=== PATIENT | female | born 1945 | race Caucasian/White ===

== ENCOUNTER → 2018-04-05 | Outpatient (CLI) | payer MEDICARE, OTHER ==
[~2018-04-05] MED LIST: ATOR20TA50 PO; BIOT5TAB3 PO; CITA-77 PO; ESTR1TAB5 PO; HYDR-531 PO; KRIL1CAP9 PO; LORA-154 OR; METF-370 PO; ROPI0.5T18 PO; SITA50TA PO; TEMA30CA PO; VALS1TAB57 PO
[2018-04-05 11:44] LABS: Basophils # (auto) 0 uL; Basophils % (auto) 0.2 % (0.0-2.0); Eosinophils # (auto) 0.1 uL; Eosinophils % (auto) 1.8 % (0.0-7.0); Hematocrit 38.5 % (36.0-46.0); Hemoglobin 12.4 g/dL (12.2-16.2); Lymphocytes # (auto) 1.7 uL; Lymphocytes % (auto) 23.6 % (10.0-50.0); Mean Corpuscular Hemoglobin 27.5 pg (28.0-32.0); Mean Corpuscular Hgb Conc. 32.2 g/dL (32.0-36.0); Mean Corpuscular Volume 85.3 fL (80.0-100.0); Monocytes # (auto) 0.5 uL; Monocytes % (auto) 7.5 % (0.0-12.0); Neutrophils # (auto) 4.8 uL; Neutrophils % (auto) 66.9 % (37.0-80.0); Platelet Count (auto) 224 10^3/uL (140-450); Red Blood Cells 4.52 10^6/uL (4.0-5.20); Red Cell Distribution Width 13.9 % (11.8-14.3); White Blood Cell 7.2 10^3/uL (4.4-10.8)
[2018-04-05 12:18] LABS: Potassium 4.8 mmol/L (3.5-5.1)
[2018-04-05 12:19] LABS: Albumin 3.8 g/dL (3.4-5.0); BUN/Creatinine Ratio 21.2; Bilirubin, Total 0.7 mg/dL (0.2-1.0); Calcium 9.2 mg/dL (8.5-10.1); Total Protein 7.8 g/dL (6.4-8.2)
== END | disposition home or self-care (01) ==
LOC: LAB 11:20
PROVIDERS: ATTEND Physician Assistant
DX: E11.69 Type 2 diabetes mellitus with other specified complication (principal); I10 Essential (primary) hypertension; E78.2 Mixed hyperlipidemia
CPT/HCPCS: 36415; 80053; 80061; 83036; 85025

== ENCOUNTER → 2018-10-02 | Outpatient (CLI) | payer MEDICARE, OTHER ==
[2018-10-02 10:56] LABS: Basophils # (auto) 0 uL; Eosinophils # (auto) 0.1 uL; Lymphocytes # (auto) 1.7 uL; Mean Corpuscular Hemoglobin 26.4 pg (28.0-32.0); Monocytes # (auto) 0.6 uL; Neutrophils # (auto) 4.1 uL; White Blood Cell 6.5 10^3/uL (4.4-10.8)
[2018-10-02 10:57] LABS: Basophils % (auto) 0.3 % (0.0-2.0); Eosinophils % (auto) 1.7 % (0.0-7.0); Hematocrit 37.5 % (36.0-46.0); Lymphocytes % (auto) 26.5 % (10.0-50.0); Mean Corpuscular Volume 82.5 fL (80.0-100.0); Monocytes % (auto) 9.3 % (0.0-12.0); Neutrophils % (auto) 62.2 % (37.0-80.0); Platelet Count (auto) 220 10^3/uL (140-450); Red Blood Cells 4.55 10^6/uL (4.0-5.20); Red Cell Distribution Width 15.1 % (11.8-14.3)
[2018-10-02 11:08] LABS: INR 0.93 (0.9-1.15); Partial Thromboplastin Time 24.7 sec (23.78-33.04)
[2018-10-02 11:10] LABS: BUN/Creatinine Ratio 16.4; Potassium 4.2 mmol/L (3.5-5.1)
== END | disposition home or self-care (01) ==
LOC: LAB 10:39
PROVIDERS: ATTEND Urology
DX: N39.0 Urinary tract infection, site not specified (principal); M79.89 Other specified soft tissue disorders; D53.8 Other specified nutritional anemias
CPT/HCPCS: 36415; 80048; 85025; 85610; 85730

== ENCOUNTER → 2019-02-15 | Outpatient (CLI) | payer MEDICARE, OTHER ==
[2019-02-15 12:37] LABS: BUN/Creatinine Ratio 16.7
[2019-02-15 12:42] LABS: Basophils # (auto) 0 uL; Eosinophils # (auto) 0.1 uL; Hemoglobin 11.3 g/dL (12.2-16.2); Monocytes # (auto) 0.5 uL; Neutrophils # (auto) 4.4 uL; White Blood Cell 6.6 10^3/uL (4.4-10.8)
[2019-02-15 12:45] LABS: Basophils % (auto) 0.6 % (0.0-2.0); Eosinophils % (auto) 2.1 % (0.0-7.0); Hematocrit 35.7 % (36.0-46.0); Lymphocytes # (auto) 1.5 uL; Lymphocytes % (auto) 23.2 % (10.0-50.0); Mean Corpuscular Hemoglobin 24.5 pg (28.0-32.0); Mean Corpuscular Hgb Conc. 31.7 g/dL (32.0-36.0); Mean Corpuscular Volume 77.1 fL (80.0-100.0); Monocytes % (auto) 8.1 % (0.0-12.0); Nucleated Red Blood Cells % 0.1 %; Platelet Count (auto) 237 10^3/uL (140-450); Red Blood Cells 4.62 10^6/uL (4.0-5.20); Red Cell Distribution Width 15.6 % (11.8-14.3)
[2019-02-15 12:53] LABS: Urine Bacteria FEW /hpf (None Seen); Urine Blood Negative /uL (Negative); Urine Mucus FEW (None Seen); Urine Specific Gravity 1.028 (1.001-1.035); Urine WBC 8 /hpf (0 - 5)
[2019-02-15 12:56] LABS: INR 0.95 (0.9-1.15)
== END | disposition home or self-care (01) ==
LOC: LAB 11:07
PROVIDERS: ATTEND Urology
DX: N39.0 Urinary tract infection, site not specified (principal); M79.89 Other specified soft tissue disorders; D53.8 Other specified nutritional anemias
CPT/HCPCS: 36415; 80048; 81001; 85025; 85610; 85652; 85730; 87086; 87088; 87186

== ENCOUNTER 2019-03-29 19:12 | Emergency (ER) | payer MEDICARE, OTHER ==
[~2019-03-29] VITALS: Ht 172.7 cm; Wt 97.5 kg
[2019-03-29 19:54] LABS: Basophils # (auto) 0 uL; Basophils % (auto) 0.2 % (0.0-2.0); Eosinophils # (auto) 0.1 uL; Eosinophils % (auto) 0.8 % (0.0-7.0); Hematocrit 33.2 % (36.0-46.0); Hemoglobin 10.5 g/dL (12.2-16.2); Lymphocytes # (auto) 1.2 uL; Lymphocytes % (auto) 12.2 % (10.0-50.0); Mean Corpuscular Hgb Conc. 31.6 g/dL (32.0-36.0); Mean Corpuscular Volume 75.8 fL (80.0-100.0); Monocytes # (auto) 0.8 uL; Neutrophils # (auto) 7.8 uL; Neutrophils % (auto) 78.8 % (37.0-80.0); Nucleated Red Blood Cells % 0.1 %; Platelet Count (auto) 259 10^3/uL (140-450); Red Blood Cells 4.37 10^6/uL (4.0-5.20); Red Cell Distribution Width 16.4 % (11.8-14.3); White Blood Cell 9.8 10^3/uL (4.4-10.8)
[2019-03-29 20:03] VITALS: BP 207/100
[2019-03-29 20:08] LABS: Alanine Aminotransferase 18 U/L (13-56); Albumin 4.3 g/dL (3.4-5.0); Anion Gap 9 (5-15); Aspartate Aminotransferase 14 U/L (15-37); BUN/Creatinine Ratio 13.4; Blood Urea Nitrogen 18 mg/dL (7-18); Calcium 8.9 mg/dL (8.5-10.1); Carbon Dioxide 23 mmol/L (21-32); Chloride 105 mmol/L (98-107); GFR African American 50 mL/min; GFR Non-African American 41 mL/min; Glucose 177 mg/dL (74-106); Magnesium 2.2 mg/dL (1.6-2.6); Potassium 4.1 mmol/L (3.5-5.1); Sodium 137 mmol/L (136-145)
[2019-03-29 20:13] LABS: Alkaline Phosphatase 99 U/L (45-117); Bilirubin, Total 1.2 mg/dL (0.2-1.0); Total Protein 8.2 g/dL (6.4-8.2)
[2019-03-29] MEDS ORDERED: cloNIDine HCL 0.1 MG TAB ONE (20:23)
[2019-03-29 22:00] LABS: INR 1.01 (0.9-1.15); Partial Thromboplastin Time 26.3 sec (23.64-32.05)
== END 2019-03-29 23:30 | disposition left against medical advice (07) ==
LOC: ER 19:12
DX: R07.89 Other chest pain (principal); Z53.21 Procedure and treatment not carried out due to patient leaving prior to being seen by health care provider
CPT/HCPCS: 36415; 71046; 80053; 83735; 83880; 84484; 85025; 85379; 85610; 85730; 93005

== ENCOUNTER 2019-03-30 13:06 | Emergency (ER) | payer MEDICARE, OTHER ==
[~2019-03-30] VITALS: Ht 172.7 cm; Wt 54.4 kg
[2019-03-30 13:49] LABS: Basophils # (auto) 0 uL; Basophils % (auto) 0.2 % (0.0-2.0); Eosinophils # (auto) 0 uL; Eosinophils % (auto) 0.1 % (0.0-7.0); Lymphocytes # (auto) 0.5 uL; Monocytes # (auto) 0.9 uL
[2019-03-30 13:50] LABS: Hematocrit 31.4 % (36.0-46.0); Hemoglobin 9.7 g/dL (12.2-16.2); Lymphocytes % (auto) 4.5 % (10.0-50.0); Mean Corpuscular Hemoglobin 23.6 pg (28.0-32.0); Mean Corpuscular Hgb Conc. 30.9 g/dL (32.0-36.0); Mean Corpuscular Volume 76.4 fL (80.0-100.0); Monocytes % (auto) 7.6 % (0.0-12.0); Neutrophils # (auto) 9.9 uL; Neutrophils % (auto) 87.6 % (37.0-80.0); Platelet Count (auto) 237 10^3/uL (140-450); Red Blood Cells 4.11 10^6/uL (4.0-5.20); Red Cell Distribution Width 16.6 % (11.8-14.3); White Blood Cell 11.3 10^3/uL (4.4-10.8)
[2019-03-30 13:59] LABS: Alanine Aminotransferase 16 U/L (13-56); Albumin 3.7 g/dL (3.4-5.0); Anion Gap 8 (5-15); Aspartate Aminotransferase 15 U/L (15-37); BUN/Creatinine Ratio 14.1; Blood Urea Nitrogen 26 mg/dL (7-18); Calcium 8.5 mg/dL (8.5-10.1); Carbon Dioxide 24 mmol/L (21-32); Chloride 106 mmol/L (98-107); GFR African American 34 mL/min; GFR Non-African American 28 mL/min; Glucose 165 mg/dL (74-106); Potassium 4.1 mmol/L (3.5-5.1); Sodium 138 mmol/L (136-145)
[2019-03-30 14:03] LABS: Alkaline Phosphatase 92 U/L (45-117); Bilirubin, Total 1.6 mg/dL (0.2-1.0); Total Protein 7.5 g/dL (6.4-8.2)
[2019-03-30 14:38] LABS: Urine Bacteria FEW /hpf (None Seen); Urine Blood 1+ /uL (Negative); Urine Specific Gravity 1.012 (1.001-1.035); Urine WBC 2 /hpf (0 - 5)
[2019-03-30 15:08] VITALS: BP 116/56
== END 2019-03-30 16:19 | disposition home or self-care (01) ==
LOC: EDBD 13:06 → ER 13:10
DX: N39.0 Urinary tract infection, site not specified (principal); E11.9 Type 2 diabetes mellitus without complications; I10 Essential (primary) hypertension; E78.00 Pure hypercholesterolemia, unspecified; Z90.49 Acquired absence of other specified parts of digestive tract; Z88.8 Allergy status to other drugs, medicaments and biological substances; Z79.899 Other long term (current) drug therapy
CPT/HCPCS: 36415; 51701; 80053; 81001; 84484; 85025; 93005

== ENCOUNTER → 2020-02-21 | Outpatient (CLI) | payer MEDICARE, OTHER ==
[2020-02-21 11:21] LABS: Basophils # (auto) 0 10 ^3/uL (0-0.2); Basophils % (auto) 0.5 % (0.0-2.0); Eosinophils # (auto) 0.1 10 ^3/uL (0-0.8); Lymphocytes # (auto) 1.4 10 ^3/uL (0.4-5.4); Monocytes # (auto) 0.6 10 ^3/uL (0-1.3); Red Blood Cells 4.33 10^6/uL (4.0-5.20)
[2020-02-21 11:24] LABS: Eosinophils % (auto) 1.9 % (0.0-7.0); Hematocrit 31.4 % (36.0-46.0); Hemoglobin 9.7 g/dL (12.2-16.2); Mean Corpuscular Hemoglobin 22.3 pg (28.0-32.0); Mean Corpuscular Hgb Conc. 30.8 g/dL (32.0-36.0); Mean Corpuscular Volume 72.4 fL (80.0-100.0); Monocytes % (auto) 11.4 % (0.0-12.0); Neutrophils # (auto) 3.2 10 ^3/uL (1.6-8.6); Neutrophils % (auto) 60.2 % (37.0-80.0); Platelet Count (auto) 239 10^3/uL (140-450); Red Cell Distribution Width 17.2 % (11.8-14.3); White Blood Cell 5.3 10^3/uL (4.4-10.8)
[2020-02-21 11:38] LABS: Albumin 3.8 g/dL (3.4-5.0); Calcium 9.1 mg/dL (8.5-10.1); Potassium 4.2 mmol/L (3.5-5.1)
[2020-02-21 11:43] LABS: BUN/Creatinine Ratio 19.5; Bilirubin, Total 0.7 mg/dL (0.2-1.0); Total Protein 7.6 g/dL (6.4-8.2)
[2020-02-21 11:48] LABS: Urine Bacteria FEW /hpf (None Seen); Urine Blood Negative /uL (Negative); Urine Mucus FEW (None Seen); Urine Specific Gravity 1.028 (1.001-1.035); Urine WBC 4 /hpf (0 - 5)
== END | disposition home or self-care (01) ==
LOC: LAB 11:05
PROVIDERS: ATTEND Physician Assistant
DX: E11.69 Type 2 diabetes mellitus with other specified complication (principal); I10 Essential (primary) hypertension; G89.4 Chronic pain syndrome; M15.9 Polyosteoarthritis, unspecified; R07.9 Chest pain, unspecified; R01.1 Cardiac murmur, unspecified
CPT/HCPCS: 36415; 80053; 80061; 81001; 83036; 85025

== ENCOUNTER → 2020-03-16 | Outpatient (CLI) | payer MEDICARE, OTHER ==
[2020-03-16 13:57] LABS: Basophils # (auto) 0 10 ^3/uL (0-0.2); Eosinophils # (auto) 0.1 10 ^3/uL (0-0.8); Monocytes # (auto) 0.6 10 ^3/uL (0-1.3)
[2020-03-16 13:59] LABS: Basophils % (auto) 0.5 % (0.0-2.0); Eosinophils % (auto) 1.9 % (0.0-7.0); Hemoglobin 9.8 g/dL (12.2-16.2); Lymphocytes # (auto) 1.6 10 ^3/uL (0.4-5.4); Lymphocytes % (auto) 26.2 % (10.0-50.0); Mean Corpuscular Hemoglobin 22.4 pg (28.0-32.0); Mean Corpuscular Hgb Conc. 31.4 g/dL (32.0-36.0); Mean Corpuscular Volume 71.3 fL (80.0-100.0); Monocytes % (auto) 9.9 % (0.0-12.0); Neutrophils # (auto) 3.8 10 ^3/uL (1.6-8.6); Neutrophils % (auto) 61.5 % (37.0-80.0); Nucleated Red Blood Cells % 0.1 %; Platelet Count (auto) 278 10^3/uL (140-450); Red Blood Cells 4.35 10^6/uL (4.0-5.20); Red Cell Distribution Width 17.2 % (11.8-14.3); White Blood Cell 6.2 10^3/uL (4.4-10.8)
[2020-03-16 14:14] LABS: Urine Bacteria NONE SEEN /hpf (None Seen); Urine Blood Negative /uL (Negative); Urine Specific Gravity 1.026 (1.001-1.035); Urine WBC None Seen /hpf (0 - 5)
[2020-03-16 14:15] LABS: INR 1.01 (0.9-1.15); Partial Thromboplastin Time 24.4 sec (23.0-31.2)
[2020-03-16 14:59] LABS: BUN/Creatinine Ratio 18.6; Calcium 9.2 mg/dL (8.5-10.1); Potassium 4.3 mmol/L (3.5-5.1)
== END | disposition home or self-care (01) ==
LOC: LAB 13:41
PROVIDERS: ATTEND Obstetrics & Gynecology
DX: M79.89 Other specified soft tissue disorders (principal); N39.0 Urinary tract infection, site not specified; D50.8 Other iron deficiency anemias
CPT/HCPCS: 36415; 80048; 81001; 85025; 85610; 85730; 87086

== ENCOUNTER → 2020-04-30 | Outpatient (CLI) | payer MEDICARE, OTHER ==
[~2020-04-30] MED LIST changes: +ALBUTEROL SULF 2.5 MG/0.5ML(0.5%) NEB SOLN ONE
== END | disposition home or self-care (01) ==
LOC: RT 10:56
PROVIDERS: ATTEND Internal Medicine Pulmonary Disease
DX: R06.00 Dyspnea, unspecified (principal); R06.02 Shortness of breath
CPT/HCPCS: 94060; 94618; 94727; 94729

== ENCOUNTER 2020-06-12 23:51 | Inpatient (IN) | payer MEDICARE, OTHER ==
[~2020-06-12] VITALS: Ht 177.8 cm; Wt 96.4 kg
[~2020-06-12 23:51] MED LIST changes: -ALBUTEROL SULF 2.5 MG/0.5ML(0.5%) NEB SOLN ONE
[2020-06-13] MEDS ORDERED: dilTIAZem 25 MG/5 ML VIAL IV ONE
[2020-06-13] MEDS ORDERED: SODIUM CHLORIDE 0.9% 1,000 ML IVB ONE
[2020-06-13] MEDS ORDERED: dilTIAZem HCL 60 MG TAB PO ONE
[2020-06-13] MEDS ORDERED: ONDANSETRON HCL 4 MG/2 ML VIAL IV ONE
[2020-06-13 00:47] LABS: Basophils # (auto) 0 10 ^3/uL (0-0.2); Basophils % (auto) 0.4 % (0.0-2.0); Eosinophils # (auto) 0 10 ^3/uL (0-0.8); Hematocrit 36.5 % (36.0-46.0); Hemoglobin 11.3 g/dL (12.2-16.2); Lymphocytes # (auto) 0.7 10 ^3/uL (0.4-5.4); Lymphocytes % (auto) 19.3 % (10.0-50.0); Mean Corpuscular Hgb Conc. 30.8 g/dL (32.0-36.0); Mean Corpuscular Volume 77.9 fL (80.0-100.0); Monocytes # (auto) 0.4 10 ^3/uL (0-1.3); Monocytes % (auto) 12.6 % (0.0-12.0); Neutrophils # (auto) 2.4 10 ^3/uL (1.6-8.6); Neutrophils % (auto) 67.7 % (37.0-80.0); Nucleated Red Blood Cells % 0.3 %; Platelet Count (auto) 175 10^3/uL (140-450); Red Blood Cells 4.69 10^6/uL (4.0-5.20); Red Cell Distribution Width 19.3 % (11.8-14.3); White Blood Cell 3.5 10^3/uL (4.4-10.8)
[2020-06-13 01:00] LABS: Albumin 3.4 g/dL (3.4-5.0); Calcium 7.9 mg/dL (8.5-10.1); Potassium 4.2 mmol/L (3.5-5.1)
[2020-06-13 01:07] LABS: BUN/Creatinine Ratio 14.2; Bilirubin, Total 0.4 mg/dL (0.2-1.0); Total Protein 7.4 g/dL (6.4-8.2)
[2020-06-13 01:41] LABS: INR 1.11 (0.9-1.15); Partial Thromboplastin Time 28.6 sec (23.0-31.2)
[2020-06-13] MEDS ORDERED: ENOXAPARIN SOD 100 MG/1 ML SYRINGE SC ONE (04:00)
[2020-06-13] MEDS ORDERED: HYDROcodone-ACET 5/325MG TAB PO PRN (07:00)
[2020-06-13] MEDS ORDERED: DEXTROSE (50%) 50ML SYRG IV PRN (07:00)
[2020-06-13] MEDS ORDERED: MORPHINE SULFATE 4 MG/ML SYR/VIAL IV PRN (07:00)
[2020-06-13] MEDS ORDERED: MORPHINE SULF INJ 2 MG/ML SYRINGE 1ML IV PRN (07:00)
[2020-06-13] MEDS ORDERED: ONDANSETRON HCL 4 MG/2 ML VIAL IV PRN (07:00)
[2020-06-13] MEDS ORDERED: ACETAMINOPHEN 325 MG TAB PO PRN (07:00)
[2020-06-13] MEDS ORDERED: DOCUSATE SOD 100 MG CAP PO PRN (07:00)
[2020-06-13] MEDS ORDERED: NITROGLYCERIN 0.4 MG SL TAB SL PRN (07:00)
[2020-06-13 08:37] LABS: Albumin 3.1 g/dL (3.4-5.0); BUN/Creatinine Ratio 19.4; Calcium 7.8 mg/dL (8.5-10.1); Potassium 4.3 mmol/L (3.5-5.1)
[2020-06-13 08:39] LABS: Bilirubin, Total 0.4 mg/dL (0.2-1.0); Total Protein 6.6 g/dL (6.4-8.2)
[2020-06-13 08:40] LABS: Basophils # (auto) 0 10 ^3/uL (0-0.2); Basophils % (auto) 0.3 % (0.0-2.0); Eosinophils # (auto) 0 10 ^3/uL (0-0.8); Eosinophils % (auto) 0.1 % (0.0-7.0); Monocytes # (auto) 0.5 10 ^3/uL (0-1.3); Monocytes % (auto) 14.1 % (0.0-12.0); Neutrophils # (auto) 1.8 10 ^3/uL (1.6-8.6); White Blood Cell 3.3 10^3/uL (4.4-10.8)
[2020-06-13 08:43] LABS: Hemoglobin 10.7 g/dL (12.2-16.2); Lymphocytes # (auto) 1.1 10 ^3/uL (0.4-5.4); Lymphocytes % (auto) 32.7 % (10.0-50.0); Mean Corpuscular Hemoglobin 24.2 pg (28.0-32.0); Mean Corpuscular Hgb Conc. 31.4 g/dL (32.0-36.0); Mean Corpuscular Volume 77.2 fL (80.0-100.0); Neutrophils % (auto) 52.8 % (37.0-80.0); Nucleated Red Blood Cells % 0.5 %; Platelet Count (auto) 174 10^3/uL (140-450); Red Cell Distribution Width 19.2 % (11.8-14.3)
[2020-06-13 08:46] LABS: Cholesterol 108 mg/dL (< 200); HDL Cholesterol 38 mg/dL (40-59); LDL Cholesterol 61 mg/dL (< 100); Triglycerides 85 mg/dL (< 150)
[2020-06-13] MEDS: InsuLIN REG 1unit/0.01ml Soln (100units/ml) SC SCH ×4 (09:20→22:00)
[2020-06-13] MEDS: ACCU-CHEK COMFORT CURVE STRIP VI SCH ×4 (09:20→23:35)
[2020-06-13] MEDS ORDERED: AZITHROMYCIN 500MG/ 250ML 250 ML IV SCH (10:00)
[2020-06-13] MEDS ORDERED: METOPROLOL TARTRATE 25 MG TAB PO SCH (10:00)
[2020-06-13] MEDS ORDERED: ZINC SULFATE 220mg CAP or TAB PO SCH (10:00)
[2020-06-13] MEDS ORDERED: HEPARIN SODIUM (PORCINE) 5000 UNITS/ML 1ML VIAL SC SCH (10:00)
[2020-06-13] MEDS: ENOXAPARIN SOD 100 MG/1 ML SYRINGE SC SCH (10:09)
[2020-06-13] MEDS: FAMOTIDINE 20 MG TAB PO SCH (10:09)
[2020-06-13] MEDS: ASPirin 81 mg TAB PO SCH (10:09)
[2020-06-13] MEDS: ASCORBIC ACID 500 MG TAB PO SCH ×2 (10:09→23:34)
[2020-06-13] MEDS: MULTIPLE VITAMIN TAB PO SCH (10:09)
[2020-06-13] MEDS ORDERED: NOREPINEPHRINE 8 MG/250ML KIT 250 ML IV ONE (11:41)
[2020-06-13] MEDS ORDERED: NOREPINEPHRINE 8 MG/250ML KIT 250 ML IV SCH ×2 (11:45)
[2020-06-13] MEDS ORDERED: REMDESIVIR PER PHARMACY IV SCH (11:45)
[2020-06-13] MEDS ORDERED: PHENYLEPHRINE IV 250 ML IV ONE (11:53)
[2020-06-13] MEDS ORDERED: SODIUM CHLORIDE 0.9% 500 ML IV ONE ×2 (12:00→12:15)
[2020-06-13] MEDS: PHENYLEPHRINE IV 250 ML IV SCH ×2 (12:00→22:14)
[2020-06-13 12:10] LABS: Magnesium 2.3 mg/dL (1.6-2.6)
[2020-06-13 12:19] LABS: CRP High Sensitivity 1.9 mg/dL (< 0.3)
[2020-06-13] MEDS: SODIUM CHLORIDE 0.9% 1,000 ML IV SCH (12:26)
[2020-06-13] MEDS: ALBUTEROL SULF HFA 90MCG INH 200DOSE IN SCH ×2 (14:00→22:15)
[2020-06-13] MEDS: SODIUM CHLOR 0.9% PF (SALINE LOCK) 10ML VIAL/SYR IV SCH ×2 (14:06→22:00)
[2020-06-13 15:27] VITALS: BP 106/52
[2020-06-13] MEDS: BUDESONIDE (INHALATION) 180 MCG IH IN SCH (22:15)
[2020-06-13 22:48] LABS: Urine Bacteria MANY /hpf (None Seen); Urine Blood Negative /uL (Negative); Urine Mucus FEW (None Seen); Urine Specific Gravity 1.025 (1.001-1.035); Urine WBC 4 /hpf (0 - 5)
[2020-06-13 23:00] VITALS: BP 97/61
[2020-06-13] MEDS: ATORVASTATIN 20 MG TAB PO SCH (23:34)
[2020-06-13] MEDS: DOXYCYCLINE 100MG/250ML 250 ML IV SCH (23:34)
[2020-06-14] VITALS (7 sets, daily range): BP systolic 93–139; BP diastolic 34–78
[2020-06-14] MEDS: dilTIAZem HCL 60 MG TAB PO SCH ×2 (00:52→06:04)
[2020-06-14] MEDS: SODIUM CHLORIDE 0.9% 1,000 ML IV SCH ×2 (04:52→11:15)
[2020-06-14] MEDS: ALBUTEROL SULF HFA 90MCG INH 200DOSE IN SCH ×3 (05:49→22:35)
[2020-06-14] MEDS: BUDESONIDE (INHALATION) 180 MCG IH IN SCH ×2 (05:49→22:35)
[2020-06-14] MEDS: SODIUM CHLOR 0.9% PF (SALINE LOCK) 10ML VIAL/SYR IV SCH ×3 (06:03→22:00)
[2020-06-14] MEDS: ACCU-CHEK COMFORT CURVE STRIP VI SCH ×4 (06:05→21:59)
[2020-06-14] MEDS: InsuLIN REG 1unit/0.01ml Soln (100units/ml) SC SCH ×4 (06:06→21:59)
[2020-06-14 06:27] LABS: Basophils # (auto) 0 10 ^3/uL (0-0.2); Eosinophils # (auto) 0 10 ^3/uL (0-0.8); Eosinophils % (auto) 0.1 % (0.0-7.0); Hematocrit 33.3 % (36.0-46.0); Lymphocytes # (auto) 0.9 10 ^3/uL (0.4-5.4); Neutrophils # (auto) 2.9 10 ^3/uL (1.6-8.6); Red Blood Cells 4.36 10^6/uL (4.0-5.20); White Blood Cell 4.3 10^3/uL (4.4-10.8)
[2020-06-14 06:30] LABS: Basophils % (auto) 0.3 % (0.0-2.0); Hemoglobin 10.4 g/dL (12.2-16.2); Mean Corpuscular Hemoglobin 23.8 pg (28.0-32.0); Mean Corpuscular Hgb Conc. 31.1 g/dL (32.0-36.0); Mean Corpuscular Volume 76.5 fL (80.0-100.0); Monocytes # (auto) 0.4 10 ^3/uL (0-1.3); Monocytes % (auto) 10.1 % (0.0-12.0); Neutrophils % (auto) 68.5 % (37.0-80.0); Nucleated Red Blood Cells % 0.1 %; Platelet Count (auto) 169 10^3/uL (140-450); Red Cell Distribution Width 18.8 % (11.8-14.3)
[2020-06-14 06:44] LABS: Potassium 4.4 mmol/L (3.5-5.1)
[2020-06-14 06:48] LABS: Albumin 3.1 g/dL (3.4-5.0); BUN/Creatinine Ratio 21.8; Calcium 7.7 mg/dL (8.5-10.1)
[2020-06-14 06:51] LABS: Bilirubin, Total 0.5 mg/dL (0.2-1.0); Total Protein 6.8 g/dL (6.4-8.2)
[2020-06-14] MEDS: ENOXAPARIN SOD 100 MG/1 ML SYRINGE SC SCH (10:00)
[2020-06-14] MEDS: ASCORBIC ACID 500 MG TAB PO SCH ×2 (10:00→21:59)
[2020-06-14] MEDS: CHOLECALCIFEROL (VITD3) 2,000 UNIT CAP PO SCH (10:00)
[2020-06-14] MEDS: MULTIPLE VITAMIN TAB PO SCH (10:00)
[2020-06-14] MEDS: FAMOTIDINE 20 MG TAB PO SCH (10:58)
[2020-06-14] MEDS: ZINC SULFATE 220mg CAP or TAB PO SCH (10:58)
[2020-06-14] MEDS ORDERED: ROPINIROLE HYDROCHLORIDE 0.5 MG PO PRN (11:15)
[2020-06-14] MEDS: DexAMETHasone SOD PHOS 10MG/1ML VIAL INJ IV SCH (11:57)
[2020-06-14] MEDS: DOXYCYCLINE 100MG/250ML 250 ML IV SCH ×2 (11:57→21:58)
[2020-06-14] MEDS: ASPirin 81 mg TAB PO SCH (11:57)
[2020-06-14] MEDS ORDERED: DIGOXIN (250MCG/ML) 2 ML AMPULE IV ONE ×2 (13:30→15:30)
[2020-06-14] MEDS ORDERED: AMIODARONE HCL 200 MG TAB PO ONE (13:30)
[2020-06-14] MEDS ORDERED: PRAMIPEXOLE DIHYDROCHLORIDE MO 0.25 MG TAB PO SCH (20:00)
[2020-06-14] MEDS ORDERED: TEMAZEPAM 15 MG CAP PO PRN (21:30)
[2020-06-14] MEDS: AMIODARONE HCL 200 MG TAB PO SCH (21:58)
[2020-06-14] MEDS: ATORVASTATIN 20 MG TAB PO SCH (21:59)
[2020-06-15] MEDS: SODIUM CHLORIDE 0.9% 1,000 ML IV SCH (03:25)
[2020-06-15] MEDS: SODIUM CHLOR 0.9% PF (SALINE LOCK) 10ML VIAL/SYR IV SCH ×2 (03:25→17:37)
[2020-06-15 05:00] VITALS: BP 151/81
[2020-06-15 05:34] LABS: Urine WBC None Seen /hpf (0 - 5)
[2020-06-15] MEDS: ALBUTEROL SULF HFA 90MCG INH 200DOSE IN SCH ×2 (05:55→13:11)
[2020-06-15] MEDS: BUDESONIDE (INHALATION) 180 MCG IH IN SCH (05:56)
[2020-06-15] MEDS: ACCU-CHEK COMFORT CURVE STRIP VI SCH ×3 (06:07→17:37)
[2020-06-15] MEDS: InsuLIN REG 1unit/0.01ml Soln (100units/ml) SC SCH ×3 (06:08→17:38)
[2020-06-15 06:18] LABS: Urine Bacteria FEW /hpf (None Seen); Urine Blood Negative /uL (Negative); Urine Specific Gravity 1.009 (1.001-1.035)
[2020-06-15 06:19] LABS: Protein, Urine 35.1 mg/dL (0.0-11.9)
[2020-06-15 08:00] VITALS: BP 120/75
[2020-06-15 08:14] LABS: Basophils # (auto) 0 10 ^3/uL (0-0.2); Basophils % (auto) 0.1 % (0.0-2.0); Eosinophils # (auto) 0 10 ^3/uL (0-0.8); Hemoglobin 10.8 g/dL (12.2-16.2); Mean Corpuscular Hemoglobin 23.6 pg (28.0-32.0); Monocytes # (auto) 0.3 10 ^3/uL (0-1.3); Neutrophils # (auto) 1.2 10 ^3/uL (1.6-8.6); White Blood Cell 2.1 10^3/uL (4.4-10.8)
[2020-06-15 08:16] LABS: Hematocrit 34.9 % (36.0-46.0); Lymphocytes # (auto) 0.6 10 ^3/uL (0.4-5.4); Lymphocytes % (auto) 30.4 % (10.0-50.0); Mean Corpuscular Hgb Conc. 31.1 g/dL (32.0-36.0); Neutrophils % (auto) 57.5 % (37.0-80.0); Nucleated Red Blood Cells % 0.1 %; Platelet Count (auto) 196 10^3/uL (140-450); Red Blood Cells 4.59 10^6/uL (4.0-5.20); Red Cell Distribution Width 18.9 % (11.8-14.3)
[2020-06-15 08:35] LABS: BUN/Creatinine Ratio 18.8; Phosphorus 1.4 mg/dL (2.5-4.90)
[2020-06-15 09:00] VITALS: BP 120/75
[2020-06-15] MEDS ORDERED: DIGOXIN 0.125 MG TAB PO SCH (10:00)
[2020-06-15] MEDS ORDERED: dilTIAZem 120MG ER CAP PO SCH (10:00)
[2020-06-15] MEDS: DOXYCYCLINE 100MG/250ML 250 ML IV SCH (10:00)
[2020-06-15] MEDS: DexAMETHasone SOD PHOS 10MG/1ML VIAL INJ IV SCH (10:00)
[2020-06-15] MEDS ORDERED: SODIUM PHOSPHATES 40 MEQ in D5W 5% 250 ML IV ONE (10:45)
[2020-06-15] MEDS: ASCORBIC ACID 500 MG TAB PO SCH (10:58)
[2020-06-15] MEDS: MULTIPLE VITAMIN TAB PO SCH (10:58)
[2020-06-15] MEDS: FAMOTIDINE 20 MG TAB PO SCH (10:58)
[2020-06-15] MEDS: ZINC SULFATE 220mg CAP or TAB PO SCH (10:59)
[2020-06-15] MEDS: CHOLECALCIFEROL (VITD3) 2,000 UNIT CAP PO SCH (10:59)
[2020-06-15] MEDS: ASPirin 81 mg TAB PO SCH (10:59)
[2020-06-15] MEDS: AMIODARONE HCL 200 MG TAB PO SCH (11:00)
[2020-06-15] MEDS: ENOXAPARIN SOD 100 MG/1 ML SYRINGE SC SCH (11:01)
[2020-06-15 13:00] VITALS: BP 132/66
[2020-06-15] MEDS ORDERED: DOXY-286 PO (14:47)
[2020-06-15] MEDS ORDERED: ASCO500T11 PO (14:47)
[2020-06-15 16:30] VITALS: BP 120/75
[2020-06-15 17:00] VITALS: BP 120/52
== END 2020-06-15 18:15 | disposition home or self-care (01) | DRG 871 ==
LOC: EDBD 23:51 → ER 23:51 → TELE 23:52 → TELE-EAST 06-13 22:45
PROVIDERS: ADMIT Nurse Practitioner Family; ATTEND Internal Medicine Pulmonary Disease
DX: A41.89 Other specified sepsis (principal); U07.1 COVID-19; I21.A1 Myocardial infarction type 2; J96.01 Acute respiratory failure with hypoxia; R65.21 Severe sepsis with septic shock; J12.89 Other viral pneumonia; N17.9 Acute kidney failure, unspecified; E11.22 Type 2 diabetes mellitus with diabetic chronic kidney disease; N18.30 Chronic kidney disease, stage 3 unspecified; E86.0 Dehydration; E66.01 Morbid (severe) obesity due to excess calories; E78.5 Hyperlipidemia, unspecified; E86.1 Hypovolemia; G25.81 Restless legs syndrome; I12.9 Hypertensive chronic kidney disease with stage 1 through stage 4 chronic kidney disease, or unspecified chronic kidney disease; I25.10 Atherosclerotic heart disease of native coronary artery without angina pectoris; Z80.1 Family history of malignant neoplasm of trachea, bronchus and lung; Z82.49 Family history of ischemic heart disease and other diseases of the circulatory system; Z90.710 Acquired absence of both cervix and uterus; Z95.5 Presence of coronary angioplasty implant and graft; Z98.84 Bariatric surgery status; I48.91 Unspecified atrial fibrillation; Z90.49 Acquired absence of other specified parts of digestive tract; E83.39 Other disorders of phosphorus metabolism; Z68.30 Body mass index [BMI] 30.0-30.9, adult
CPT/HCPCS: 36415; 71045; 74176; 80048; 80053; 80061; 81001; 82570; 82728; 82962; 83036; 83615; 83735; 83880; 84100; 84156; 84300; 84443; 84484; 85025; 85379; 85610; 85730; 86141; 87040; 87426; 93005; 94640; 96361; 96365; 96372; 96375; 99291; G0378; J1100; J1815; J2405; J3490; J7060

== ENCOUNTER 2020-07-30 17:11 | Inpatient (IN) | payer MEDICARE, OTHER ==
[~2020-07-30] VITALS: Ht 172.7 cm; Wt 98.4 kg
[~2020-07-30 17:11] MED LIST changes: +ASCO500T11 PO; +DOXY-286 PO
[2020-07-30 18:52] LABS: Basophils # (auto) 0 10 ^3/uL (0-0.2); Eosinophils # (auto) 0.1 10 ^3/uL (0-0.8); Lymphocytes # (auto) 1.2 10 ^3/uL (0.4-5.4)
[2020-07-30 18:55] LABS: Basophils % (auto) 0.3 % (0.0-2.0); Eosinophils % (auto) 1.1 % (0.0-7.0); Hematocrit 33.8 % (36.0-46.0); Lymphocytes % (auto) 18.3 % (10.0-50.0); Mean Corpuscular Hemoglobin 25.8 pg (28.0-32.0); Mean Corpuscular Hgb Conc. 32.5 g/dL (32.0-36.0); Mean Corpuscular Volume 79.4 fL (80.0-100.0); Monocytes # (auto) 0.8 10 ^3/uL (0-1.3); Monocytes % (auto) 11.6 % (0.0-12.0); Neutrophils # (auto) 4.6 10 ^3/uL (1.6-8.6); Neutrophils % (auto) 68.7 % (37.0-80.0); Platelet Count (auto) 234 10^3/uL (140-450); Red Blood Cells 4.26 10^6/uL (4.0-5.20); Red Cell Distribution Width 19.5 % (11.8-14.3); White Blood Cell 6.7 10^3/uL (4.4-10.8)
[2020-07-30 19:05] LABS: Albumin 3.5 g/dL (3.4-5.0); Calcium 8.9 mg/dL (8.5-10.1); Potassium 4.2 mmol/L (3.5-5.1)
[2020-07-30 19:13] LABS: BUN/Creatinine Ratio 19.7; Bilirubin, Total 0.7 mg/dL (0.2-1.0); Total Protein 6.8 g/dL (6.4-8.2)
[2020-07-30] MEDS ORDERED: FUROSEMIDE 40 MG/4 ML VIAL IV ONE (20:30)
[2020-07-30] MEDS ORDERED: dilTIAZem 25 MG/5 ML VIAL IV ONE (20:30)
[2020-07-31] MEDS ORDERED: MORPHINE SULF INJ 2 MG/ML SYRINGE 1ML IV PRN (01:15)
[2020-07-31] MEDS ORDERED: MORPHINE SULFATE 4 MG/ML SYR/VIAL IV PRN (01:15)
[2020-07-31] MEDS ORDERED: DEXTROSE (50%) 50ML SYRG IV PRN (01:15)
[2020-07-31] MEDS ORDERED: ONDANSETRON HCL 4 MG/2 ML VIAL IV PRN (01:15)
[2020-07-31] MEDS ORDERED: ACETAMINOPHEN 325 MG TAB PO PRN (01:15)
[2020-07-31] MEDS ORDERED: NITROGLYCERIN 0.4 MG SL TAB SL PRN (01:15)
[2020-07-31] MEDS ORDERED: DOCUSATE SOD 100 MG CAP PO PRN (01:15)
[2020-07-31] MEDS ORDERED: PRAMIPEXOLE DIHYDROCHLORIDE MO 0.25 MG TAB PO ONE ×2 (01:45→18:15)
[2020-07-31 03:07] LABS: Urine Bacteria FEW /hpf (None Seen); Urine Blood TRACE /uL (Negative); Urine Specific Gravity 1.007 (1.001-1.035); Urine WBC <1 /hpf (0 - 5)
[2020-07-31] MEDS: HYDROcodone-ACET 5/325MG TAB PO PRN ×2 (03:32→21:11)
[2020-07-31] MEDS: dilTIAZem 120MG ER CAP PO SCH (04:49)
[2020-07-31] MEDS ORDERED: FUROSEMIDE 20 MG/2 ML VIAL IV SCH (06:00)
[2020-07-31] MEDS: SODIUM CHLOR 0.9% PF (SALINE LOCK) 10ML VIAL/SYR IV SCH ×3 (06:00→21:09)
[2020-07-31] MEDS ORDERED: FUROSEMIDE 40 MG/4 ML VIAL IV ONE (07:15)
[2020-07-31] MEDS: InsuLIN REG 1unit/0.01ml Soln (100units/ml) SC SCH ×4 (07:28→21:09)
[2020-07-31] MEDS: ACCU-CHEK COMFORT CURVE STRIP VI SCH ×4 (07:28→21:10)
[2020-07-31 08:25] LABS: Basophils # (auto) 0 10 ^3/uL (0-0.2); Basophils % (auto) 0.5 % (0.0-2.0); Eosinophils # (auto) 0.1 10 ^3/uL (0-0.8); Monocytes # (auto) 0.9 10 ^3/uL (0-1.3); Neutrophils # (auto) 4.3 10 ^3/uL (1.6-8.6); Nucleated Red Blood Cells % 0.1 %; White Blood Cell 6.7 10^3/uL (4.4-10.8)
[2020-07-31 08:27] LABS: Eosinophils % (auto) 1.7 % (0.0-7.0); Hematocrit 33.5 % (36.0-46.0); Hemoglobin 10.8 g/dL (12.2-16.2); Lymphocytes # (auto) 1.4 10 ^3/uL (0.4-5.4); Lymphocytes % (auto) 20.4 % (10.0-50.0); Mean Corpuscular Hemoglobin 25.4 pg (28.0-32.0); Mean Corpuscular Hgb Conc. 32.1 g/dL (32.0-36.0); Monocytes % (auto) 13.9 % (0.0-12.0); Neutrophils % (auto) 63.5 % (37.0-80.0); Platelet Count (auto) 227 10^3/uL (140-450); Red Blood Cells 4.24 10^6/uL (4.0-5.20); Red Cell Distribution Width 19.4 % (11.8-14.3)
[2020-07-31 08:42] LABS: Potassium 3.8 mmol/L (3.5-5.1)
[2020-07-31 09:01] LABS: Albumin 3.5 g/dL (3.4-5.0); BUN/Creatinine Ratio 19.1; Bilirubin, Total 0.9 mg/dL (0.2-1.0)
[2020-07-31] MEDS: FAMOTIDINE (10MG/ML) 2ML VL IV SCH ×2 (11:08→21:11)
[2020-07-31] MEDS: ZINC SULFATE 220mg CAP or TAB PO SCH (11:09)
[2020-07-31] MEDS: HEPARIN SODIUM (PORCINE) 5000 UNITS/ML 1ML VIAL SC SCH ×2 (11:10→21:10)
[2020-07-31] MEDS: ASCORBIC ACID 500 MG TAB PO SCH ×2 (11:10→21:09)
[2020-07-31] MEDS: MULTIPLE VITAMIN TAB PO SCH (11:10)
[2020-07-31] MEDS ORDERED: ASCO500T11 PO (12:16)
[2020-07-31] MEDS ORDERED: APIX2.5T PO (12:20)
[2020-07-31] MEDS ORDERED: ASPI-498 PO (12:20)
[2020-07-31] MEDS ORDERED: AMIO200T33 PO (12:20)
[2020-07-31] MEDS ORDERED: PRAM0.7513 PO (12:21)
[2020-07-31] MEDS ORDERED: PRAM1TAB PO (12:21)
[2020-07-31] MEDS ORDERED: [UNRECOGNIZED DRUG - CODE] PO (12:21)
[2020-07-31] MEDS ORDERED: OXYC325T14 PO (12:21)
[2020-07-31] MEDS ORDERED: FERR1TAB28 PO (12:22)
[2020-07-31] MEDS ORDERED: ALBUAER3 IN (12:22)
[2020-07-31] MEDS ORDERED: MULT1TAB70 PO (12:23)
[2020-07-31] MEDS ORDERED: ESTR0.1C VA (12:26)
[2020-07-31] MEDS: FUROSEMIDE 40 MG/4 ML VIAL IV SCH (18:26)
[2020-08-01 00:34] VITALS: BP 127/78
[2020-08-01] MEDS: SODIUM CHLOR 0.9% PF (SALINE LOCK) 10ML VIAL/SYR IV SCH ×3 (06:00→22:24)
[2020-08-01] MEDS: InsuLIN REG 1unit/0.01ml Soln (100units/ml) SC SCH ×4 (06:49→22:24)
[2020-08-01] MEDS: FUROSEMIDE 40 MG/4 ML VIAL IV SCH ×2 (06:55→17:00)
[2020-08-01] MEDS: ACCU-CHEK COMFORT CURVE STRIP VI SCH ×4 (06:55→22:24)
[2020-08-01 08:00] VITALS: BP 121/77
[2020-08-01 08:38] LABS: Basophils # (auto) 0 10 ^3/uL (0-0.2); Eosinophils # (auto) 0.1 10 ^3/uL (0-0.8); Hemoglobin 10.8 g/dL (12.2-16.2); Lymphocytes # (auto) 1.2 10 ^3/uL (0.4-5.4); Neutrophils # (auto) 4.6 10 ^3/uL (1.6-8.6); Neutrophils % (auto) 67.2 % (37.0-80.0); Nucleated Red Blood Cells % 0.1 %
[2020-08-01 08:42] LABS: Basophils % (auto) 0.5 % (0.0-2.0); Eosinophils % (auto) 0.9 % (0.0-7.0); Hematocrit 33.2 % (36.0-46.0); Lymphocytes % (auto) 16.9 % (10.0-50.0); Mean Corpuscular Hemoglobin 25.6 pg (28.0-32.0); Mean Corpuscular Hgb Conc. 32.6 g/dL (32.0-36.0); Mean Corpuscular Volume 78.7 fL (80.0-100.0); Monocytes % (auto) 14.5 % (0.0-12.0); Platelet Count (auto) 207 10^3/uL (140-450); Red Blood Cells 4.22 10^6/uL (4.0-5.20); Red Cell Distribution Width 19.6 % (11.8-14.3); White Blood Cell 6.9 10^3/uL (4.4-10.8)
[2020-08-01 09:09] LABS: Potassium 3.6 mmol/L (3.5-5.1)
[2020-08-01 09:22] LABS: Albumin 3.3 g/dL (3.4-5.0); BUN/Creatinine Ratio 18.2; Calcium 8.7 mg/dL (8.5-10.1); Total Protein 6.7 g/dL (6.4-8.2)
[2020-08-01] MEDS: FAMOTIDINE (10MG/ML) 2ML VL IV SCH ×2 (09:51→22:24)
[2020-08-01] MEDS: ZINC SULFATE 220mg CAP or TAB PO SCH (09:52)
[2020-08-01] MEDS: dilTIAZem 120MG ER CAP PO SCH (09:52)
[2020-08-01] MEDS: MULTIPLE VITAMIN TAB PO SCH (09:52)
[2020-08-01] MEDS: ASCORBIC ACID 500 MG TAB PO SCH ×2 (09:53→22:24)
[2020-08-01] MEDS: HEPARIN SODIUM (PORCINE) 5000 UNITS/ML 1ML VIAL SC SCH (09:53)
[2020-08-01] MEDS ORDERED: DIGOXIN (250MCG/ML) 2 ML AMPULE IV ONE (10:00)
[2020-08-01] MEDS ORDERED: AMIODARONE HCL 150 MG in D5W 5% 100 ML IV ONE (10:00)
[2020-08-01] MEDS ORDERED: AMIODARONE 450mg/250ml AE 250 ML IV SCH (10:15)
[2020-08-01] MEDS: APIXABAN 5 MG TAB PO SCH ×2 (12:51→22:24)
[2020-08-01 16:00] VITALS: BP 140/81
[2020-08-01] MEDS: AMIODARONE 450mg/250ml AE 250 ML IV SCH (16:15)
[2020-08-01] MEDS: PRAMIPEXOLE DIHYDROCHLORIDE MO 0.25 MG TAB PO SCH (16:55)
[2020-08-02] VITALS: BP 104/61
[2020-08-02] MEDS ORDERED: TEMAZEPAM 15 MG CAP PO ONE (00:15)
[2020-08-02] MEDS: InsuLIN REG 1unit/0.01ml Soln (100units/ml) SC SCH ×4 (06:17→22:20)
[2020-08-02] MEDS: SODIUM CHLOR 0.9% PF (SALINE LOCK) 10ML VIAL/SYR IV SCH ×3 (06:18→21:59)
[2020-08-02 06:42] LABS: Basophils # (auto) 0 10 ^3/uL (0-0.2); Eosinophils # (auto) 0.1 10 ^3/uL (0-0.8); Hemoglobin 10.7 g/dL (12.2-16.2); Monocytes # (auto) 0.9 10 ^3/uL (0-1.3); Neutrophils # (auto) 4.3 10 ^3/uL (1.6-8.6); White Blood Cell 6.3 10^3/uL (4.4-10.8)
[2020-08-02 06:45] LABS: Basophils % (auto) 0.8 % (0.0-2.0); Eosinophils % (auto) 1.6 % (0.0-7.0); Hematocrit 32.2 % (36.0-46.0); Lymphocytes % (auto) 15.9 % (10.0-50.0); Mean Corpuscular Hemoglobin 26.1 pg (28.0-32.0); Mean Corpuscular Hgb Conc. 33.3 g/dL (32.0-36.0); Mean Corpuscular Volume 78.4 fL (80.0-100.0); Monocytes % (auto) 13.8 % (0.0-12.0); Neutrophils % (auto) 67.9 % (37.0-80.0); Platelet Count (auto) 188 10^3/uL (140-450); Red Blood Cells 4.11 10^6/uL (4.0-5.20); Red Cell Distribution Width 18.9 % (11.8-14.3)
[2020-08-02] MEDS: ACCU-CHEK COMFORT CURVE STRIP VI SCH ×4 (06:52→22:03)
[2020-08-02] MEDS: FUROSEMIDE 40 MG/4 ML VIAL IV SCH ×2 (06:52→17:17)
[2020-08-02 07:06] LABS: Potassium 3.6 mmol/L (3.5-5.1)
[2020-08-02 07:19] LABS: Calcium 8.7 mg/dL (8.5-10.1)
[2020-08-02] MEDS: AMIODARONE 450mg/250ml AE 250 ML IV SCH ×2 (07:38→22:33)
[2020-08-02 08:00] VITALS: BP 125/72
[2020-08-02] MEDS: FAMOTIDINE (10MG/ML) 2ML VL IV SCH ×2 (08:50→22:02)
[2020-08-02] MEDS: ZINC SULFATE 220mg CAP or TAB PO SCH (08:51)
[2020-08-02] MEDS: dilTIAZem 120MG ER CAP PO SCH (08:52)
[2020-08-02] MEDS: APIXABAN 5 MG TAB PO SCH ×2 (08:52→22:02)
[2020-08-02] MEDS: PRAMIPEXOLE DIHYDROCHLORIDE MO 0.25 MG TAB PO SCH (08:52)
[2020-08-02] MEDS: ASCORBIC ACID 500 MG TAB PO SCH ×2 (08:54→22:02)
[2020-08-02] MEDS: MULTIPLE VITAMIN TAB PO SCH (08:54)
[2020-08-02] MEDS: HYDROcodone-ACET 5/325MG TAB PO PRN (09:25)
[2020-08-02 16:00] VITALS: BP 118/67
[2020-08-03 00:05] VITALS: BP 130/80
[2020-08-03] MEDS: InsuLIN REG 1unit/0.01ml Soln (100units/ml) SC SCH ×3 (06:40→18:12)
[2020-08-03] MEDS: ACCU-CHEK COMFORT CURVE STRIP VI SCH ×3 (06:40→18:11)
[2020-08-03] MEDS: SODIUM CHLOR 0.9% PF (SALINE LOCK) 10ML VIAL/SYR IV SCH ×2 (06:41→16:52)
[2020-08-03] MEDS: FUROSEMIDE 40 MG/4 ML VIAL IV SCH ×2 (06:41→18:12)
[2020-08-03 07:53] LABS: Basophils # (auto) 0.1 10 ^3/uL (0-0.2); Eosinophils # (auto) 0.1 10 ^3/uL (0-0.8); Hemoglobin 10.9 g/dL (12.2-16.2); Lymphocytes # (auto) 1.1 10 ^3/uL (0.4-5.4); White Blood Cell 6.2 10^3/uL (4.4-10.8)
[2020-08-03 07:54] LABS: Basophils % (auto) 1.3 % (0.0-2.0); Eosinophils % (auto) 1.8 % (0.0-7.0); Lymphocytes % (auto) 17.7 % (10.0-50.0); Mean Corpuscular Hemoglobin 25.4 pg (28.0-32.0); Mean Corpuscular Volume 79.4 fL (80.0-100.0); Monocytes % (auto) 15.4 % (0.0-12.0); Neutrophils % (auto) 63.8 % (37.0-80.0); Nucleated Red Blood Cells % 0.1 %; Platelet Count (auto) 186 10^3/uL (140-450); Red Blood Cells 4.28 10^6/uL (4.0-5.20); Red Cell Distribution Width 18.8 % (11.8-14.3)
[2020-08-03 08:00] VITALS: BP 134/81
[2020-08-03 08:07] LABS: INR 1.24 (0.9-1.15); Partial Thromboplastin Time 27.2 sec (23.0-31.2)
[2020-08-03 08:13] LABS: Potassium 3.1 mmol/L (3.5-5.1)
[2020-08-03 08:22] LABS: Albumin 3.4 g/dL (3.4-5.0); BUN/Creatinine Ratio 14.7; Calcium 8.7 mg/dL (8.5-10.1); Total Protein 6.8 g/dL (6.4-8.2)
[2020-08-03] MEDS ORDERED: LIDOCAINE VISCOUS 2% 15ML UD ONE (09:03)
[2020-08-03] MEDS ORDERED: fentaNYL CITRATE 100 MCG/2 ML VL ONE (09:03)
[2020-08-03] MEDS ORDERED: MIDAZOLAM HCL 1MG/1ML-2 ML VIAL ONE (09:03)
[2020-08-03] MEDS ORDERED: diphenhdrAMINE HCL 50 MG/1 ML VL ONE (09:03)
[2020-08-03] MEDS: PRAMIPEXOLE DIHYDROCHLORIDE MO 0.25 MG TAB PO SCH (10:00)
[2020-08-03] MEDS: ZINC SULFATE 220mg CAP or TAB PO SCH (10:00)
[2020-08-03] MEDS: FAMOTIDINE (10MG/ML) 2ML VL IV SCH (10:00)
[2020-08-03] MEDS: dilTIAZem 120MG ER CAP PO SCH (10:00)
[2020-08-03] MEDS: ASCORBIC ACID 500 MG TAB PO SCH (10:00)
[2020-08-03] MEDS: MULTIPLE VITAMIN TAB PO SCH (10:00)
[2020-08-03] MEDS: APIXABAN 5 MG TAB PO SCH (10:42)
[2020-08-03 16:00] VITALS: BP 123/71
== END 2020-08-03 22:25 | disposition home or self-care (01) | DRG 291 ==
LOC: ER 17:11 → TELE 07-31 01:14 → TELE-WESTW 07-31 23:48
PROVIDERS: ADMIT Nurse Practitioner Family; ATTEND Internal Medicine
PROC: B24BZZ4 Ultrasonography of Heart with Aorta, Transesophageal (ICD-10-PCS; principal; 2020-08-03)
PROC: 5A2204Z Restoration of Cardiac Rhythm, Single (ICD-10-PCS; 2020-08-03)
DX: I13.0 Hypertensive heart and chronic kidney disease with heart failure and stage 1 through stage 4 chronic kidney disease, or unspecified chronic kidney disease (principal); I50.43 Acute on chronic combined systolic (congestive) and diastolic (congestive) heart failure; U07.1 COVID-19; N17.0 Acute kidney failure with tubular necrosis; D68.69 Other thrombophilia; I48.91 Unspecified atrial fibrillation; E11.65 Type 2 diabetes mellitus with hyperglycemia; E78.5 Hyperlipidemia, unspecified; E11.22 Type 2 diabetes mellitus with diabetic chronic kidney disease; E66.9 Obesity, unspecified; I25.10 Atherosclerotic heart disease of native coronary artery without angina pectoris; N18.32 Chronic kidney disease, stage 3b; Z86.16 Personal history of COVID-19; I35.0 Nonrheumatic aortic (valve) stenosis; J44.9 Chronic obstructive pulmonary disease, unspecified; Z79.84 Long term (current) use of oral hypoglycemic drugs; Z90.49 Acquired absence of other specified parts of digestive tract; Z68.32 Body mass index [BMI] 32.0-32.9, adult; Z98.42 Cataract extraction status, left eye; Z98.41 Cataract extraction status, right eye; Z79.899 Other long term (current) drug therapy; Z80.1 Family history of malignant neoplasm of trachea, bronchus and lung; Z98.84 Bariatric surgery status; Z90.710 Acquired absence of both cervix and uterus; Z82.49 Family history of ischemic heart disease and other diseases of the circulatory system; Z87.01 Personal history of pneumonia (recurrent); Z98.61 Coronary angioplasty status
CPT/HCPCS: 36415; 51702; 71045; 80048; 80053; 81001; 82962; 83036; 83880; 84443; 84484; 85025; 85610; 85730; 86850; 86900; 86901; 87426; 93005; 93306; 93312; 96374; 96375; 96376; 99152; G0378; J1815; J2250; J3490

== ENCOUNTER 2020-08-31 03:45 | Emergency (ER) | payer MEDICARE, OTHER ==
[~2020-08-31] VITALS: Ht 172.7 cm; Wt 97.5 kg
[~2020-08-31 03:45] MED LIST changes: +ALBUAER3 IN; +AMIO200T33 PO; +APIX2.5T PO; +ASPI-498 PO; -DOXY-286 PO; +ESTR0.1C VA; -ESTR1TAB5 PO; +FERR1TAB28 PO; -HYDR-531 PO; -LORA-154 OR; +MULT1TAB70 PO; +OXYC325T14 PO; +PRAM0.7513 PO; +PRAM1TAB PO; -ROPI0.5T18 PO; -SITA50TA PO; +[UNRECOGNIZED DRUG - CODE] PO
[2020-08-31 05:28] LABS: Basophils # (auto) 0 10 ^3/uL (0-0.2); Basophils % (auto) 0.3 % (0.0-2.0); Eosinophils # (auto) 0.1 10 ^3/uL (0-0.8); Eosinophils % (auto) 1.1 % (0.0-7.0); Hematocrit 36.4 % (36.0-46.0); Hemoglobin 11.8 g/dL (12.2-16.2); Lymphocytes # (auto) 0.8 10 ^3/uL (0.4-5.4); Lymphocytes % (auto) 14.4 % (10.0-50.0); Mean Corpuscular Hemoglobin 27.1 pg (28.0-32.0); Mean Corpuscular Hgb Conc. 32.4 g/dL (32.0-36.0); Mean Corpuscular Volume 83.8 fL (80.0-100.0); Monocytes # (auto) 0.6 10 ^3/uL (0-1.3); Monocytes % (auto) 10.8 % (0.0-12.0); Neutrophils % (auto) 73.4 % (37.0-80.0); Nucleated Red Blood Cells % 0.1 %; Red Blood Cells 4.34 10^6/uL (4.0-5.20); White Blood Cell 5.5 10^3/uL (4.4-10.8)
[2020-08-31 05:30] LABS: Red Cell Distribution Width 22.4 % (11.8-14.3)
[2020-08-31 05:44] LABS: INR 1.18 (0.9-1.15); Partial Thromboplastin Time 26.5 sec (23.0-31.2)
[2020-08-31 05:51] LABS: Albumin 3.8 g/dL (3.4-5.0); Anion Gap 5 (5-15); Blood Urea Nitrogen 23 mg/dL (7-18); Calcium 8.8 mg/dL (8.5-10.1); Carbon Dioxide 28 mmol/L (21-32); Chloride 106 mmol/L (98-107); Glucose 98 mg/dL (74-106); Magnesium 2.1 mg/dL (1.6-2.6); Potassium 4.3 mmol/L (3.5-5.1); Sodium 139 mmol/L (136-145)
[2020-08-31 05:58] LABS: Alanine Aminotransferase 21 U/L (13-56); Alkaline Phosphatase 78 U/L (45-117); Aspartate Aminotransferase 22 U/L (15-37); BUN/Creatinine Ratio 14.8; Bilirubin, Total 1.7 mg/dL (0.2-1.0); GFR African American 42 mL/min; GFR Non-African American 35 mL/min; Total Protein 7.3 g/dL (6.4-8.2)
[2020-08-31] MEDS ORDERED: FUROSEMIDE 20 MG/2 ML VIAL IV ONE (06:45)
[2020-08-31 08:00] VITALS: BP 149/69
[2020-10-15] MEDS ORDERED: METO-289 PO (12:57)
== END 2020-08-31 08:41 | disposition home or self-care (01) ==
LOC: ER 03:48
DX: L03.116 Cellulitis of left lower limb (principal); I13.0 Hypertensive heart and chronic kidney disease with heart failure and stage 1 through stage 4 chronic kidney disease, or unspecified chronic kidney disease; I50.9 Heart failure, unspecified; N18.9 Chronic kidney disease, unspecified; E11.22 Type 2 diabetes mellitus with diabetic chronic kidney disease; J44.9 Chronic obstructive pulmonary disease, unspecified; E78.5 Hyperlipidemia, unspecified; Z90.49 Acquired absence of other specified parts of digestive tract; Z20.822 Contact with and (suspected) exposure to COVID-19; Z90.710 Acquired absence of both cervix and uterus
CPT/HCPCS: 36415; 71045; 80053; 83735; 83880; 84484; 85025; 85610; 85730; 87426; 93005; 96374; 99285; C9803; J1940; U0003

== ENCOUNTER 2020-10-02 00:48 | Emergency (ER) | payer MEDICARE, OTHER ==
[~2020-10-02] VITALS: Ht 172.7 cm; Wt 102.1 kg
[2020-10-02 02:04] LABS: Basophils # (auto) 0 10 ^3/uL (0-0.2); Basophils % (auto) 0.2 % (0.0-2.0); Eosinophils # (auto) 0 10 ^3/uL (0-0.8); Eosinophils % (auto) 0.6 % (0.0-7.0); Hematocrit 34.7 % (36.0-46.0); Hemoglobin 11.2 g/dL (12.2-16.2); Lymphocytes # (auto) 0.9 10 ^3/uL (0.4-5.4); Lymphocytes % (auto) 15.2 % (10.0-50.0); Mean Corpuscular Hemoglobin 27.9 pg (28.0-32.0); Mean Corpuscular Hgb Conc. 32.1 g/dL (32.0-36.0); Mean Corpuscular Volume 86.8 fL (80.0-100.0); Monocytes # (auto) 0.7 10 ^3/uL (0-1.3); Monocytes % (auto) 11.7 % (0.0-12.0); Neutrophils # (auto) 4.1 10 ^3/uL (1.6-8.6); Neutrophils % (auto) 72.3 % (37.0-80.0); Nucleated Red Blood Cells % 0.2 %; Platelet Count (auto) 216 10^3/uL (140-450); Red Cell Distribution Width 19.8 % (11.8-14.3); White Blood Cell 5.7 10^3/uL (4.4-10.8)
[2020-10-02 02:20] LABS: Albumin 3.3 g/dL (3.4-5.0); Anion Gap 7 (5-15); BUN/Creatinine Ratio 21.1; Blood Urea Nitrogen 35 mg/dL (7-18); Calcium 8.2 mg/dL (8.5-10.1); Carbon Dioxide 26 mmol/L (21-32); Chloride 105 mmol/L (98-107); GFR African American 39 mL/min; GFR Non-African American 32 mL/min; Glucose 117 mg/dL (74-106); Potassium 4.4 mmol/L (3.5-5.1); Sodium 138 mmol/L (136-145)
[2020-10-02 02:25] LABS: Alanine Aminotransferase 37 U/L (13-56); Alkaline Phosphatase 105 U/L (45-117); Aspartate Aminotransferase 37 U/L (15-37); Bilirubin, Total 1.3 mg/dL (0.2-1.0); Total Protein 6.4 g/dL (6.4-8.2)
[2020-10-02 05:20] LABS: Urine Amorphous Crystal FEW /hpf (None Seen); Urine Bacteria FEW /hpf (None Seen); Urine Blood Negative /uL (Negative); Urine Hyaline Cast FEW /lpf (0 - 2); Urine Specific Gravity 1.024 (1.001-1.035); Urine WBC 2 /hpf (0 - 5)
[2020-10-02 11:00] VITALS: BP 119/57
== END 2020-10-02 11:15 | disposition home or self-care (01) ==
LOC: EDBD 00:48 → ER 00:54
DX: D64.9 Anemia, unspecified (principal); E44.1 Mild protein-calorie malnutrition; M25.551 Pain in right hip; M25.552 Pain in left hip; J44.9 Chronic obstructive pulmonary disease, unspecified; E11.22 Type 2 diabetes mellitus with diabetic chronic kidney disease; I13.0 Hypertensive heart and chronic kidney disease with heart failure and stage 1 through stage 4 chronic kidney disease, or unspecified chronic kidney disease; N18.9 Chronic kidney disease, unspecified; I50.9 Heart failure, unspecified; E78.5 Hyperlipidemia, unspecified; Z90.49 Acquired absence of other specified parts of digestive tract; Z90.710 Acquired absence of both cervix and uterus; Z68.34 Body mass index [BMI] 34.0-34.9, adult
CPT/HCPCS: 36415; 72170; 73590; 73620; 80053; 81001; 84484; 85025; 93005

== ENCOUNTER 2020-10-14 15:05 | Inpatient (IN) | payer MEDICARE, OTHER ==
[~2020-10-14] VITALS: Ht 177.8 cm; Wt 96.1 kg
[2020-10-14] MEDS ORDERED: MORPHINE SULF INJ 2 MG/ML SYRINGE 1ML IV PRN ×2 (16:15→19:00)
[2020-10-14] MEDS ORDERED: SODIUM CHLORIDE 0.9% 1,000 ML IV ONE (16:15)
[2020-10-14 16:22] LABS: Basophils # (auto) 0 10 ^3/uL (0-0.2); Basophils % (auto) 0.5 % (0.0-2.0); Eosinophils # (auto) 0 10 ^3/uL (0-0.8); Eosinophils % (auto) 0.5 % (0.0-7.0); Hematocrit 34.9 % (36.0-46.0); Hemoglobin 11.3 g/dL (12.2-16.2); Lymphocytes # (auto) 0.8 10 ^3/uL (0.4-5.4); Lymphocytes % (auto) 17.8 % (10.0-50.0); Mean Corpuscular Hemoglobin 28.5 pg (28.0-32.0); Mean Corpuscular Hgb Conc. 32.3 g/dL (32.0-36.0); Monocytes # (auto) 0.5 10 ^3/uL (0-1.3); Monocytes % (auto) 11.5 % (0.0-12.0); Neutrophils # (auto) 3.3 10 ^3/uL (1.6-8.6); Neutrophils % (auto) 69.7 % (37.0-80.0); Nucleated Red Blood Cells % 0.1 %; Platelet Count (auto) 175 10^3/uL (140-450); Red Blood Cells 3.96 10^6/uL (4.0-5.20); Red Cell Distribution Width 19.2 % (11.8-14.3); White Blood Cell 4.7 10^3/uL (4.4-10.8)
[2020-10-14 16:39] LABS: Albumin 3.2 g/dL (3.4-5.0); Anion Gap 9 (5-15); Blood Urea Nitrogen 33 mg/dL (7-18); Calcium 8.3 mg/dL (8.5-10.1); Carbon Dioxide 27 mmol/L (21-32); Chloride 105 mmol/L (98-107); Glucose 74 mg/dL (74-106); Magnesium 1.9 mg/dL (1.6-2.6); Potassium 4.2 mmol/L (3.5-5.1); Sodium 141 mmol/L (136-145)
[2020-10-14 16:41] LABS: BUN/Creatinine Ratio 14.7; GFR African American 27 mL/min; GFR Non-African American 23 mL/min
[2020-10-14 16:43] LABS: INR 1.41 (0.9-1.15); Partial Thromboplastin Time 29.2 sec (23.0-31.2)
[2020-10-14 16:46] LABS: Alanine Aminotransferase 18 U/L (13-56); Alkaline Phosphatase 89 U/L (45-117); Aspartate Aminotransferase 19 U/L (15-37); Bilirubin, Total 0.9 mg/dL (0.2-1.0); Total Protein 6.2 g/dL (6.4-8.2)
[2020-10-14 18:14] LABS: Urine Bacteria NONE SEEN /hpf (None Seen); Urine Blood Negative /uL (Negative); Urine Hyaline Cast MOD /lpf (0 - 2); Urine Specific Gravity 1.025 (1.001-1.035); Urine WBC 2 /hpf (0 - 5)
[2020-10-14] MEDS ORDERED: FUROSEMIDE 40 MG/4 ML VIAL IV ONE (18:15)
[2020-10-14] MEDS ORDERED: DEXTROSE (50%) 50ML SYRG IV PRN (19:00)
[2020-10-14] MEDS ORDERED: ONDANSETRON HCL 4 MG/2 ML VIAL IV PRN (19:00)
[2020-10-14] MEDS ORDERED: NITROGLYCERIN 0.4 MG SL TAB SL PRN (19:00)
[2020-10-14 20:26] LABS: Cholesterol 86 mg/dL (< 200)
[2020-10-14 20:29] LABS: HDL Cholesterol 38 mg/dL (40-59); LDL Cholesterol 44 mg/dL (< 100); Triglycerides 91 mg/dL (< 150)
[2020-10-14] MEDS: InsuLIN REG 1unit/0.01ml Soln (100units/ml) SC SCH (22:00)
[2020-10-14] MEDS: ACCU-CHEK COMFORT CURVE STRIP VI SCH (22:00)
[2020-10-15] MEDS: ATORVASTATIN 20 MG TAB PO SCH ×2 (01:33→22:05)
[2020-10-15] MEDS: CLINDAMYCIN 300MG IV 50 ML IV SCH ×4 (01:33→22:04)
[2020-10-15 05:00] VITALS: BP 116/68
[2020-10-15] MEDS ORDERED: FUROSEMIDE 40 MG/4 ML VIAL IV SCH (06:00)
[2020-10-15] MEDS: MORPHINE SULF INJ 2 MG/ML SYRINGE 1ML IV PRN (06:02)
[2020-10-15] MEDS: ACCU-CHEK COMFORT CURVE STRIP VI SCH ×4 (06:31→22:05)
[2020-10-15] MEDS: InsuLIN REG 1unit/0.01ml Soln (100units/ml) SC SCH ×4 (06:31→22:00)
[2020-10-15 06:45] LABS: Basophils # (auto) 0 10 ^3/uL (0-0.2); Basophils % (auto) 0.3 % (0.0-2.0); Eosinophils # (auto) 0 10 ^3/uL (0-0.8); Eosinophils % (auto) 0.6 % (0.0-7.0); Hematocrit 34.2 % (36.0-46.0); Hemoglobin 11.3 g/dL (12.2-16.2); Lymphocytes # (auto) 0.9 10 ^3/uL (0.4-5.4); Lymphocytes % (auto) 17.1 % (10.0-50.0); Mean Corpuscular Hemoglobin 29.1 pg (28.0-32.0); Mean Corpuscular Hgb Conc. 33.2 g/dL (32.0-36.0); Mean Corpuscular Volume 87.6 fL (80.0-100.0); Monocytes # (auto) 0.6 10 ^3/uL (0-1.3); Monocytes % (auto) 12.3 % (0.0-12.0); Neutrophils # (auto) 3.5 10 ^3/uL (1.6-8.6); Neutrophils % (auto) 69.7 % (37.0-80.0); Nucleated Red Blood Cells % 0.1 %; Platelet Count (auto) 164 10^3/uL (140-450); Red Cell Distribution Width 18.7 % (11.8-14.3); White Blood Cell 5.1 10^3/uL (4.4-10.8)
[2020-10-15 06:47] LABS: Calcium 8.4 mg/dL (8.5-10.1); Potassium 3.9 mmol/L (3.5-5.1)
[2020-10-15 06:49] LABS: BUN/Creatinine Ratio 16.3
[2020-10-15 08:00] VITALS: BP 103/57
[2020-10-15 08:35] VITALS: BP 103/57
[2020-10-15] MEDS: SPIRONOLACTONE 25 MG TAB PO SCH (09:37)
[2020-10-15] MEDS: FAMOTIDINE (10MG/ML) 2ML VL IV SCH (09:37)
[2020-10-15] MEDS: cefTRIAXone 1GM/50ML D5W 50 ML IV SCH (09:37)
[2020-10-15] MEDS ORDERED: ENOXAPARIN SOD 30 MG/0.3 ML SYRINGE SC SCH (10:00)
[2020-10-15] MEDS ORDERED: ALBUTEROL SULF 2.5 MG/0.5ML(0.5%) NEB SOLN NEB PRN ×2 (10:45→12:45)
[2020-10-15] MEDS ORDERED: IPRATROPIUM BROM 0.5 MG/2.5ML INH SOL NEB PRN (10:45)
[2020-10-15 12:32] VITALS: BP 91/54
[2020-10-15] MEDS ORDERED: FURO20TA3 PO (12:57)
[2020-10-15] MEDS ORDERED: METO-169 PO (12:57)
[2020-10-15] MEDS ORDERED: POTA8TAB2 PO (12:57)
[2020-10-15] MEDS ORDERED: DIGO0.12 PO (12:57)
[2020-10-15 16:40] VITALS: BP 106/62
[2020-10-15] MEDS ORDERED: FUROSEMIDE 20 MG/2 ML VIAL IV ONE (18:00)
[2020-10-15 22:00] VITALS: BP 97/50
[2020-10-16] VITALS (7 sets, daily range): BP systolic 103–131; BP diastolic 57–89
[2020-10-16] MEDS: CLINDAMYCIN 300MG IV 50 ML IV SCH ×3 (05:51→22:30)
[2020-10-16] MEDS: ACCU-CHEK COMFORT CURVE STRIP VI SCH ×4 (06:05→22:31)
[2020-10-16] MEDS: InsuLIN REG 1unit/0.01ml Soln (100units/ml) SC SCH ×4 (06:05→22:00)
[2020-10-16 06:32] LABS: Basophils # (auto) 0 10 ^3/uL (0-0.2); Basophils % (auto) 0.4 % (0.0-2.0); Eosinophils # (auto) 0 10 ^3/uL (0-0.8); Eosinophils % (auto) 0.7 % (0.0-7.0); Hematocrit 33.3 % (36.0-46.0); Hemoglobin 10.8 g/dL (12.2-16.2); Lymphocytes # (auto) 0.9 10 ^3/uL (0.4-5.4); Lymphocytes % (auto) 20.4 % (10.0-50.0); Mean Corpuscular Hemoglobin 28.6 pg (28.0-32.0); Mean Corpuscular Hgb Conc. 32.5 g/dL (32.0-36.0); Mean Corpuscular Volume 87.8 fL (80.0-100.0); Monocytes # (auto) 0.6 10 ^3/uL (0-1.3); Monocytes % (auto) 13.7 % (0.0-12.0); Neutrophils # (auto) 2.9 10 ^3/uL (1.6-8.6); Neutrophils % (auto) 64.8 % (37.0-80.0); Nucleated Red Blood Cells % 0.1 %; Platelet Count (auto) 153 10^3/uL (140-450); Red Blood Cells 3.79 10^6/uL (4.0-5.20); Red Cell Distribution Width 18.4 % (11.8-14.3); White Blood Cell 4.4 10^3/uL (4.4-10.8)
[2020-10-16 06:46] LABS: Potassium 3.8 mmol/L (3.5-5.1)
[2020-10-16 06:50] LABS: Albumin 3.1 g/dL (3.4-5.0); BUN/Creatinine Ratio 16.9; Calcium 8.1 mg/dL (8.5-10.1)
[2020-10-16 06:52] LABS: Bilirubin, Total 0.8 mg/dL (0.2-1.0)
[2020-10-16] MEDS: cefTRIAXone 1GM/50ML D5W 50 ML IV SCH (09:17)
[2020-10-16] MEDS: SPIRONOLACTONE 25 MG TAB PO SCH (09:18)
[2020-10-16] MEDS: AMIODARONE HCL 200 MG TAB PO SCH (09:19)
[2020-10-16] MEDS: FAMOTIDINE (10MG/ML) 2ML VL IV SCH (09:19)
[2020-10-16] MEDS: FUROSEMIDE 40 MG/4 ML VIAL IV SCH (09:20)
[2020-10-16] MEDS: ENOXAPARIN SOD 30 MG/0.3 ML SYRINGE SC SCH (10:00)
[2020-10-16] MEDS ORDERED: metOLazone 5 MG TAB PO ONE (14:00)
[2020-10-16] MEDS ORDERED: TEMAZEPAM 15 MG CAP PO ONE (22:15)
[2020-10-16] MEDS: ATORVASTATIN 20 MG TAB PO SCH (22:30)
[2020-10-17 05:18] VITALS: BP 111/75
[2020-10-17] MEDS: CLINDAMYCIN 300MG IV 50 ML IV SCH ×3 (06:00→22:36)
[2020-10-17] MEDS: ACCU-CHEK COMFORT CURVE STRIP VI SCH ×4 (06:49→22:00)
[2020-10-17] MEDS: InsuLIN REG 1unit/0.01ml Soln (100units/ml) SC SCH ×4 (06:49→22:35)
[2020-10-17 08:20] LABS: BUN/Creatinine Ratio 18.9; Calcium 8.5 mg/dL (8.5-10.1); Potassium 3.6 mmol/L (3.5-5.1)
[2020-10-17 09:00] VITALS: BP 101/64
[2020-10-17] MEDS: SPIRONOLACTONE 25 MG TAB PO SCH (09:10)
[2020-10-17] MEDS: cefTRIAXone 1GM/50ML D5W 50 ML IV SCH (09:10)
[2020-10-17] MEDS: FAMOTIDINE (10MG/ML) 2ML VL IV SCH (09:10)
[2020-10-17] MEDS: ENOXAPARIN SOD 30 MG/0.3 ML SYRINGE SC SCH (09:11)
[2020-10-17] MEDS: FUROSEMIDE 40 MG/4 ML VIAL IV SCH ×2 (09:11→17:54)
[2020-10-17] MEDS: AMIODARONE HCL 200 MG TAB PO SCH (09:11)
[2020-10-17 13:00] VITALS: BP 115/63
[2020-10-17] MEDS ORDERED: LIDOCAINE 2% (LOCAL ANESTH.) PF 5ml SDV ONE (14:33)
[2020-10-17] MEDS ORDERED: LIDOCAINE HCL 2 %PF INJ 10ML AMP IJ ONE (14:45)
[2020-10-17 15:44] LABS: INR 1.24 (0.9-1.15); Partial Thromboplastin Time 25.9 sec (23.0-31.2)
[2020-10-17 17:00] VITALS: BP 126/68
[2020-10-17] MEDS: ATORVASTATIN 20 MG TAB PO SCH (22:37)
[2020-10-17] MEDS: TEMAZEPAM 15 MG CAP PO PRN (22:50)
[2020-10-18 05:06] VITALS: BP 114/65
[2020-10-18] MEDS: FUROSEMIDE 40 MG/4 ML VIAL IV SCH ×2 (06:00→12:48)
[2020-10-18] MEDS: InsuLIN REG 1unit/0.01ml Soln (100units/ml) SC SCH ×4 (06:38→22:45)
[2020-10-18] MEDS: LEVOTHYROXINE SODIUM 25 MCG TAB PO SCH (06:38)
[2020-10-18] MEDS: CLINDAMYCIN 300MG IV 50 ML IV SCH ×3 (06:38→22:55)
[2020-10-18] MEDS: ACCU-CHEK COMFORT CURVE STRIP VI SCH ×4 (06:39→22:00)
[2020-10-18 07:09] LABS: Potassium 3.5 mmol/L (3.5-5.1)
[2020-10-18 09:00] VITALS: BP 100/55
[2020-10-18] MEDS: SPIRONOLACTONE 25 MG TAB PO SCH (09:53)
[2020-10-18] MEDS: cefTRIAXone 1GM/50ML D5W 50 ML IV SCH (09:53)
[2020-10-18] MEDS: FAMOTIDINE (10MG/ML) 2ML VL IV SCH (09:53)
[2020-10-18] MEDS: ENOXAPARIN SOD 40 MG/0.4 ML SYRINGE SC SCH (09:53)
[2020-10-18] MEDS: AMIODARONE HCL 200 MG TAB PO SCH (09:53)
[2020-10-18] MEDS: MORPHINE SULF INJ 2 MG/ML SYRINGE 1ML IV PRN (11:46)
[2020-10-18] MEDS ORDERED: MAGNESIUM SULFATE 1GM/100ML 100 ML IV ONE (12:15)
[2020-10-18 12:26] VITALS: BP 113/60
[2020-10-18] MEDS ORDERED: FUROSEMIDE 40 MG/4 ML VIAL IV SCH (13:00)
[2020-10-18 17:00] VITALS: BP 120/72
[2020-10-18 22:00] VITALS: BP 122/76
[2020-10-18] MEDS ORDERED: POTASSIUM CHL 10 Meq TABLET PO SCH (22:00)
[2020-10-18] MEDS ORDERED: PRAMIPEXOLE DIHYDROCHLORIDE MO 0.25 MG TAB PO SCH (22:00)
[2020-10-18] MEDS: ATORVASTATIN 20 MG TAB PO SCH (22:55)
[2020-10-18] MEDS: POTASSIUM CHL 10 Meq TABLET PO SCH (22:55)
[2020-10-18] MEDS: TEMAZEPAM 15 MG CAP PO PRN (22:56)
[2020-10-19 05:00] VITALS: BP 128/68
[2020-10-19] MEDS: ACCU-CHEK COMFORT CURVE STRIP VI SCH ×3 (06:36→17:29)
[2020-10-19] MEDS: LEVOTHYROXINE SODIUM 25 MCG TAB PO SCH (06:36)
[2020-10-19] MEDS: InsuLIN REG 1unit/0.01ml Soln (100units/ml) SC SCH ×3 (06:36→17:00)
[2020-10-19] MEDS: CLINDAMYCIN 300MG IV 50 ML IV SCH ×2 (06:36→14:21)
[2020-10-19 07:50] VITALS: BP 128/68
[2020-10-19] MEDS: cefTRIAXone 1GM/50ML D5W 50 ML IV SCH (08:44)
[2020-10-19 09:00] VITALS: BP 129/62
[2020-10-19] MEDS: SPIRONOLACTONE 25 MG TAB PO SCH (09:29)
[2020-10-19] MEDS: FAMOTIDINE (10MG/ML) 2ML VL IV SCH (09:29)
[2020-10-19] MEDS: POTASSIUM CHL 10 Meq TABLET PO SCH (09:30)
[2020-10-19] MEDS: AMIODARONE HCL 200 MG TAB PO SCH (09:30)
[2020-10-19] MEDS: ENOXAPARIN SOD 40 MG/0.4 ML SYRINGE SC SCH (09:31)
[2020-10-19 13:00] VITALS: BP 119/63
[2020-10-19] MEDS: FUROSEMIDE 40 MG/4 ML VIAL IV SCH (14:21)
[2020-10-19] MEDS ORDERED: SPIR25TA PO (14:24)
[2020-10-19] MEDS ORDERED: FURO40TA4 PO (14:24)
[2020-10-19] MEDS ORDERED: PANT40TA2 PO (14:24)
[2020-10-19] MEDS ORDERED: POTA-167 PO (14:24)
[2020-10-19 17:00] VITALS: BP 120/72
[2020-10-19 17:46] VITALS: BP 119/63
== END 2020-10-19 19:56 | disposition home health service (06) | DRG 291 ==
LOC: EDBD 15:05 → ER 15:05 → TELE 18:49 → TELE-EAST 20:40
PROVIDERS: ADMIT Nurse Practitioner Acute Care; ATTEND Internal Medicine
PROC: 0W993ZZ Drainage of Right Pleural Cavity, Percutaneous Approach (ICD-10-PCS; principal; 2020-10-17)
DX: I13.0 Hypertensive heart and chronic kidney disease with heart failure and stage 1 through stage 4 chronic kidney disease, or unspecified chronic kidney disease (principal); I50.43 Acute on chronic combined systolic (congestive) and diastolic (congestive) heart failure; J96.21 Acute and chronic respiratory failure with hypoxia; I48.20 Chronic atrial fibrillation, unspecified; E44.1 Mild protein-calorie malnutrition; N17.9 Acute kidney failure, unspecified; J91.8 Pleural effusion in other conditions classified elsewhere; D68.69 Other thrombophilia; N18.4 Chronic kidney disease, stage 4 (severe); Z20.822 Contact with and (suspected) exposure to COVID-19; E03.9 Hypothyroidism, unspecified; F32.9 Major depressive disorder, single episode, unspecified; S62.91XA Unspecified fracture of right hand, initial encounter for closed fracture; W18.39XA Other fall on same level, initial encounter; K21.9 Gastro-esophageal reflux disease without esophagitis; R54 Age-related physical debility; S81.802A Unspecified open wound, left lower leg, initial encounter; I25.10 Atherosclerotic heart disease of native coronary artery without angina pectoris; E11.22 Type 2 diabetes mellitus with diabetic chronic kidney disease; J44.9 Chronic obstructive pulmonary disease, unspecified; E78.5 Hyperlipidemia, unspecified; G25.81 Restless legs syndrome; Z96.659 Presence of unspecified artificial knee joint; Z90.49 Acquired absence of other specified parts of digestive tract; Y93.89 Activity, other specified; Y92.89 Other specified places as the place of occurrence of the external cause; Z68.28 Body mass index [BMI] 28.0-28.9, adult; Y99.8 Other external cause status; Z95.5 Presence of coronary angioplasty implant and graft; Z90.710 Acquired absence of both cervix and uterus; Z98.84 Bariatric surgery status; Z86.16 Personal history of COVID-19; Z82.49 Family history of ischemic heart disease and other diseases of the circulatory system; Z87.01 Personal history of pneumonia (recurrent); Z80.1 Family history of malignant neoplasm of trachea, bronchus and lung; Z79.01 Long term (current) use of anticoagulants
CPT/HCPCS: 36415; 36600; 71045; 73110; 73130; 76604; 80048; 80053; 80061; 81001; 82040; 82805; 82962; 83735; 83880; 84443; 84484; 85025; 85610; 85730; 87081; 87205; 87426; 89051; 93005; 96361; 96374; G0378; J0696; J1815; J2001; J3490

== ENCOUNTER → 2020-11-02 | Outpatient (CLI) | payer MEDICARE, OTHER ==
[~2020-11-02] MED LIST changes: -ASPI-498 PO; -BIOT5TAB3 PO; -ESTR0.1C VA; +FURO40TA4 PO; +METO-169 PO; +PANT40TA2 PO; +POTA-167 PO; -PRAM0.7513 PO; +SPIR25TA PO; -[UNRECOGNIZED DRUG - CODE] PO
== END | disposition home or self-care (01) ==
LOC: LAB 11:11
PROVIDERS: ATTEND Internal Medicine Pulmonary Disease
DX: Z01.812 Encounter for preprocedural laboratory examination (principal); Z20.822 Contact with and (suspected) exposure to COVID-19
CPT/HCPCS: 36415; 87426

== ENCOUNTER 2022-06-29 06:28 | Inpatient (IN) | payer MEDICARE, OTHER ==
[~2022-06-29] VITALS: Ht 172.7 cm; Wt 88.3 kg
[~2022-06-29 06:28] MED LIST changes: -METO-169 PO; +METO-289 PO
[2022-06-29 08:03] LABS: Basophils # (auto) 0 10 ^3/uL (0-0.2); Basophils % (auto) 0.6 % (0.0-2.0); Eosinophils # (auto) 0.1 10 ^3/uL (0-0.8); Eosinophils % (auto) 1.5 % (0.0-7.0); Hemoglobin 14.9 g/dL (12.2-16.2); Lymphocytes # (auto) 0.6 10 ^3/uL (0.4-5.4); Lymphocytes % (auto) 10.1 % (10.0-50.0); Mean Corpuscular Hemoglobin 29.5 pg (28.0-32.0); Mean Corpuscular Hgb Conc. 33.2 g/dL (32.0-36.0); Mean Corpuscular Volume 88.8 fL (80.0-100.0); Monocytes # (auto) 0.7 10 ^3/uL (0-1.3); Monocytes % (auto) 12.1 % (0.0-12.0); Neutrophils # (auto) 4.3 10 ^3/uL (1.6-8.6); Neutrophils % (auto) 75.7 % (37.0-80.0); Red Blood Cells 5.07 10^6/uL (4.0-5.20); Red Cell Distribution Width 13.6 % (11.8-14.3); White Blood Cell 5.7 10^3/uL (4.4-10.8)
[2022-06-29 08:22] LABS: Potassium 4.4 mmol/L (3.5-5.1)
[2022-06-29 08:30] LABS: Albumin 3.8 g/dL (3.4-5.0); Bilirubin, Total 0.6 mg/dL (0.2-1.0); Calcium 9.5 mg/dL (8.5-10.1); Total Protein 7.3 g/dL (6.4-8.2)
[2022-06-29 09:02] LABS: Partial Thromboplastin Time 27.3 sec (24.6-33.4)
[2022-06-29 10:32] LABS: Urine Bacteria FEW /hpf (None Seen); Urine Blood Negative /uL (Negative); Urine Specific Gravity 1.023 (1.001-1.035); Urine WBC 6 /hpf (0 - 5)
[2022-06-29] MEDS ORDERED: ONDANSETRON HCL 4 MG/2 ML VIAL IV PRN (10:45)
[2022-06-29] MEDS ORDERED: HYDROcodone-ACET 5/325MG TAB PO PRN (10:45)
[2022-06-29] MEDS ORDERED: ACETAMINOPHEN 325 MG TAB PO PRN (10:45)
[2022-06-29] MEDS ORDERED: NITROGLYCERIN 0.4 MG SL TAB SL PRN (10:45)
[2022-06-29] MEDS ORDERED: DEXTROSE (50%) 50ML SYRG IV PRN (10:45)
[2022-06-29] MEDS ORDERED: MORPHINE SULFATE INJ 2 MG/ml SYRG IV PRN (10:45)
[2022-06-29] MEDS ORDERED: DOCUSATE SOD 100 MG CAP PO PRN (10:45)
[2022-06-29] MEDS: AMIODARONE HCL 200 MG TAB PO SCH (19:30)
[2022-06-29] MEDS: InsuLIN REG 1unit/0.01ml Soln (100units/ml) SC SCH ×3 (19:35→22:59)
[2022-06-29] MEDS: ACCU-CHEK COMFORT CURVE STRIP VI SCH ×3 (19:38→22:58)
[2022-06-29] MEDS: APIXABAN 5 MG TAB PO SCH ×2 (19:38→22:00)
[2022-06-29] MEDS ORDERED: PRAMIPEXOLE DIHYDROCHLORIDE MO 0.25 MG TAB ONE ×2 (22:22→22:24)
[2022-06-29] MEDS: ATORVASTATIN 20 MG TAB PO SCH (22:27)
[2022-06-29] MEDS: PRAMIPEXOLE DIHYDROCHLORIDE MO 0.25 MG TAB PO SCH (22:30)
[2022-06-30] VITALS (7 sets, daily range): BP systolic 123–157; BP diastolic 54–78
[2022-06-30 04:38] LABS: Basophils # (auto) 0 10 ^3/uL (0-0.2); Basophils % (auto) 0.3 % (0.0-2.0); Eosinophils # (auto) 0.2 10 ^3/uL (0-0.8); Eosinophils % (auto) 2.5 % (0.0-7.0); Hematocrit 41.7 % (36.0-46.0); Lymphocytes # (auto) 0.6 10 ^3/uL (0.4-5.4); Lymphocytes % (auto) 9.6 % (10.0-50.0); Mean Corpuscular Hemoglobin 29.4 pg (28.0-32.0); Mean Corpuscular Hgb Conc. 33.6 g/dL (32.0-36.0); Mean Corpuscular Volume 87.6 fL (80.0-100.0); Monocytes # (auto) 1.1 10 ^3/uL (0-1.3); Monocytes % (auto) 16.9 % (0.0-12.0); Neutrophils # (auto) 4.7 10 ^3/uL (1.6-8.6); Neutrophils % (auto) 70.7 % (37.0-80.0); Nucleated Red Blood Cells % 0.2 %; Red Blood Cells 4.76 10^6/uL (4.0-5.20); Red Cell Distribution Width 13.4 % (11.8-14.3); White Blood Cell 6.7 10^3/uL (4.4-10.8)
[2022-06-30 04:55] LABS: Potassium 3.9 mmol/L (3.5-5.1)
[2022-06-30 05:03] LABS: Albumin 3.4 g/dL (3.4-5.0); BUN/Creatinine Ratio 18.3; Calcium 9.3 mg/dL (8.5-10.1)
[2022-06-30 05:06] LABS: Bilirubin, Total 0.6 mg/dL (0.2-1.0)
[2022-06-30] MEDS: ACCU-CHEK COMFORT CURVE STRIP VI SCH ×4 (06:43→22:00)
[2022-06-30] MEDS: InsuLIN REG 1unit/0.01ml Soln (100units/ml) SC SCH ×4 (06:44→23:02)
[2022-06-30] MEDS: APIXABAN 5 MG TAB PO SCH ×2 (10:00→22:00)
[2022-06-30] MEDS: FUROSEMIDE 40 MG TAB PO SCH (10:00)
[2022-06-30] MEDS: VALSARTAN 80 MG TAB PO SCH (10:00)
[2022-06-30] MEDS: AMIODARONE HCL 200 MG TAB PO SCH (10:00)
[2022-06-30] MEDS: SPIRONOLACTONE 25 MG TAB PO SCH (10:00)
[2022-06-30] MEDS: PANTOPRAZOLE 40 MG/10 ML VIAL INJ IV SCH (10:11)
[2022-06-30] MEDS: METOPROLOL SUCCINATE XL 50 MG TAB PO SCH (10:12)
[2022-06-30] MEDS: CITALOPRAM HYDROBR 20 MG TAB PO SCH (10:13)
[2022-06-30] MEDS ORDERED: CALC-332 PO (10:32)
[2022-06-30] MEDS ORDERED: FLEC1TAB PO (10:32)
[2022-06-30] MEDS ORDERED: ASPI1TAB20 PO (10:32)
[2022-06-30] MEDS ORDERED: LEVO25TA49 PO (10:32)
[2022-06-30] MEDS ORDERED: [UNRECOGNIZED DRUG - CODE] PO (10:32)
[2022-06-30] MEDS ORDERED: DOCU100T15 PO (10:32)
[2022-06-30] MEDS ORDERED: EMPA1TAB3 PO (10:32)
[2022-06-30] MEDS ORDERED: BIOT5TAB3 PO (10:32)
[2022-06-30] MEDS: ATORVASTATIN 20 MG TAB PO SCH (18:03)
[2022-06-30] MEDS ORDERED: CIPR500T4 PO (18:08)
[2022-06-30] MEDS ORDERED: FAMO-12 PO (18:08)
[2022-06-30] MEDS ORDERED: PRAMIPEXOLE DIHYDROCHLORIDE MO 0.25 MG TAB ONE ×3 (23:16→23:20)
[2022-06-30] MEDS: PRAMIPEXOLE DIHYDROCHLORIDE MO 0.25 MG TAB PO SCH (23:21)
[2022-07-01 05:00] VITALS: BP 139/58
[2022-07-01 05:09] LABS: BUN/Creatinine Ratio 17.9
[2022-07-01] MEDS: ACCU-CHEK COMFORT CURVE STRIP VI SCH ×3 (06:37→18:00)
[2022-07-01] MEDS: InsuLIN REG 1unit/0.01ml Soln (100units/ml) SC SCH ×3 (06:40→18:13)
[2022-07-01 09:00] VITALS: BP_SYST 106; BP_SYST 129; BP_DIAS 56; BP_DIAS 69
[2022-07-01] MEDS: SPIRONOLACTONE 25 MG TAB PO SCH (09:24)
[2022-07-01] MEDS: PANTOPRAZOLE 40 MG/10 ML VIAL INJ IV SCH (09:24)
[2022-07-01] MEDS: CITALOPRAM HYDROBR 20 MG TAB PO SCH (09:25)
[2022-07-01] MEDS: AMIODARONE HCL 200 MG TAB PO SCH (09:26)
[2022-07-01] MEDS: METOPROLOL SUCCINATE XL 50 MG TAB PO SCH (09:31)
[2022-07-01] MEDS: FUROSEMIDE 40 MG TAB PO SCH (10:00)
[2022-07-01] MEDS: APIXABAN 5 MG TAB PO SCH (10:00)
[2022-07-01] MEDS: VALSARTAN 80 MG TAB PO SCH (10:00)
[2022-07-01 13:00] VITALS: BP 146/65
[2022-07-01 15:50] LABS: Cholesterol 154 mg/dL (< 200)
[2022-07-01 15:53] LABS: HDL Cholesterol 48 mg/dL (40-59); LDL Cholesterol 97 mg/dL (< 100); Triglycerides 224 mg/dL (< 150)
[2022-07-01 17:00] VITALS: BP 134/65
[2022-07-01] MEDS: ATORVASTATIN 20 MG TAB PO SCH (18:00)
== END 2022-07-01 19:02 | disposition home health service (06) | DRG 552 ==
LOC: EDBD 06:28 → ER 06:28 → OVERFLOW 10:56 → WEST WING 23:28
PROVIDERS: ADMIT Nurse Practitioner Family; ATTEND Internal Medicine
DX: S32.009A Unspecified fracture of unspecified lumbar vertebra, initial encounter for closed fracture (principal); I13.0 Hypertensive heart and chronic kidney disease with heart failure and stage 1 through stage 4 chronic kidney disease, or unspecified chronic kidney disease; I50.22 Chronic systolic (congestive) heart failure; E11.22 Type 2 diabetes mellitus with diabetic chronic kidney disease; E78.5 Hyperlipidemia, unspecified; I25.10 Atherosclerotic heart disease of native coronary artery without angina pectoris; N18.31 Chronic kidney disease, stage 3a; S99.912A Unspecified injury of left ankle, initial encounter; Z20.822 Contact with and (suspected) exposure to COVID-19; Z96.652 Presence of left artificial knee joint; E55.9 Vitamin D deficiency, unspecified; I48.91 Unspecified atrial fibrillation; J44.9 Chronic obstructive pulmonary disease, unspecified; Z80.1 Family history of malignant neoplasm of trachea, bronchus and lung; Z82.49 Family history of ischemic heart disease and other diseases of the circulatory system; Z90.710 Acquired absence of both cervix and uterus; Z88.8 Allergy status to other drugs, medicaments and biological substances; Z90.49 Acquired absence of other specified parts of digestive tract; Y93.89 Activity, other specified; Y92.89 Other specified places as the place of occurrence of the external cause; Y99.8 Other external cause status; X50.1XXA Overexertion from prolonged static or awkward postures, initial encounter
CPT/HCPCS: 36415; 71045; 72131; 72148; 72192; 73610; 73700; 80048; 80053; 80061; 81001; 82306; 82607; 82962; 83036; 83880; 84443; 84484; 85025; 85610; 85730; 87426; 93005; 93306; C9113; G0378; J1815